=== PATIENT | female | born 1995 | race Caucasian/White ===

== ENCOUNTER 2023-11-29 14:26 | Emergency (ER) | payer BC ==
[~2023-11-29] VITALS: Ht 162.6 cm; Wt 61.4 kg
[2023-11-29] MEDS ORDERED: OMEP40CA21 PO (16:42)
[2023-11-29] MEDS ORDERED: CETI10CA PO (16:42)
[2023-11-29] MEDS ORDERED: ALBU8HFA INH (16:42)
[2023-11-29 17:00] VITALS: BP 112/74; PULSE 75; RESP 16; TEMP 98.2; O2SAT 98
== END 2023-11-29 17:04 | disposition home or self-care (01) ==
LOC: ER 14:27
DX: R07.89 Other chest pain (principal); Z88.0 Allergy status to penicillin; Z88.2 Allergy status to sulfonamides
CPT/HCPCS: 71045; 93005; 99283